=== PATIENT | male | born 1980 | race Caucasian/White ===

== ENCOUNTER 2019-08-02 14:59 | Emergency (ER) | payer OTHER ==
--- NOTE | 2019-08-02 15:35 | EDM.PDOC ---
ED HPI GENERAL MEDICAL PROBLEM - General Chief Complaint: Abdominal Pain Stated Complaint: R SIDE PAIN Time Seen by Provider: 08/02/19 15:09 Source of Information: Reports: Patient History Limitations: Reports: No Limitations - History of Present Illness INITIAL COMMENTS - FREE TEXT/NARRATIVE: Patient is a 38-year-old male who presents with acute onset of right lower quadrant abdominal pain. He states that the pain initially began this morning. It improved briefly, however has been getting gradually worse over the last couple hours. He states a couple days ago he had an episode where his entire lower abdomen was sore, however that resolved. He denies any nausea vomiting fever or chills. He has had some slight diarrhea, however he attributed that to having his gallbladder out. Patient denies the need for pain medications at this time. States "I am okay as long as I do not move". Right Abdomen Pain Score (Numeric/FACES): 5 - Related Data Allergies Allergy/AdvReac Type Severity Reaction Status Date / Time strawberry Allergy Cannot Verified 08/02/19 15:14 Remember Home Meds: Home Meds Colestipol [Colestipol HCl] 1 gram PO DAILY 12/10/18 [History] Past Medical History - Past Surgical History GI Surgical History: Reports: Cholecystectomy Social & Family History - Tobacco Use Smoking Status *Q: Current Every Day Smoker Years of Tobacco use: 5 Packs/Tins Daily: 1 - Caffeine Use Caffeine Use: Reports: Soda - Recreational Drug Use Recreational Drug Use: No ED ROS GENERAL - Review of Systems Review Of Systems: Comprehensive ROS is negative, except as noted in HPI. ED EXAM, GI/ABD - Physical Exam Exam: See Below Exam Limited By: No Limitations General Appearance: Alert, WD/WN, No Apparent Distress Respiratory/Chest: No Respiratory Distress, Lungs Clear, Normal Breath Sounds, No Accessory Muscle Use, Chest Non-Tender Cardiovascular: Normal Peripheral Pulses, Regular Rate, Rhythm, No Edema, No Gallop, No JVD, No Murmur, No Rub GI/Abdominal Exam: Normal Bowel Sounds, Soft, No Organomegaly, No Distention, No Abnormal Bruit, No Mass, Pelvis Stable, Rebound, Tender (Right lower quadrant ). No: Guarding, Rigid Neurological: Alert, Oriented, CN II-XII Intact, Normal Cognition, Normal Gait, Normal Reflexes, No Motor/Sensory Deficits Psychiatric: Normal Affect, Normal Mood Skin Exam: Warm, Dry, Intact, Normal Color, No Rash Course - Vital Signs Last Recorded V/S: Last Vital Signs Temp 97.8 F 08/02/19 18:20 Pulse 106 H 08/02/19 15:09 Resp 16 08/02/19 18:20 BP 125/92 H 08/02/19 18:20 Pulse Ox 95 08/02/19 18:20 - Orders/Labs/Meds Orders: Active Orders 24 hr Category Date Time Status Peripheral IV Care [RC] . DIRECTED Care 08/02/19 15:32 Active Peripheral IV Insertion Adult [OM.PC] Stat Oth 08/02/19 15:32 Ordered Labs: Laboratory Tests 08/02/19 08/02/19 08/02/19 Range/Units 15:46 15:46 16:55 WBC 8.03 (4.23-9.07) K/mm3 RBC 5.45 (4.63-6.08) M/mm3 Hgb 17.9 H (13.7-17.5) gm/dl Hct 49.5 (40.1-51.0) % MCV 90.8 (79.0-92.2) fl MCH 32.8 H (25.7-32.2) pg MCHC 36.2 H (32.2-35.5) g/dl RDW Std Deviation 44.0 H (35.1-43.9) fL Plt Count 270 D (163-337) K/mm3 MPV 10.2 (9.4-12.3) fl Neut % (Auto) 54.3 (34.0-67.9) % Lymph % (Auto) 32.1 (21.8-53.1) % [place] % (Auto) 9.2 (5.3-12.2) % Eos % (Auto) 3.6 (0.8-7.0) Baso % (Auto) 0.2 (0.1-1.2) % Neut # (Auto) 4.35 (1.78-5.38) K/mm3 Lymph # (Auto) 2.58 (1.32-3.57) K/mm3 [place] # (Auto) 0.74 (0.30-0.82) K/mm3 Eos # (Auto) 0.29 (0.04-0.54) K/mm3 Baso # (Auto) 0.02 (0.01-0.08) K/mm3 Manual Slide Review Not Reportable Sodium 139 (136-145) mEq/L Potassium 3.7 (3.5-5.1) mEq/L Chloride 105 (98-107) mEq/L Carbon Dioxide 24 (21-32) mEq/L Anion Gap 13.7 (5-15) BUN 9 (7-18) mg/dL Creatinine 1.1 (0.7-1.3) mg/dL Est Cr Clr Drug Dosing 88.95 mL/min Estimated GFR (MDRD) > 60 (>60) mL/min BUN/Creatinine Ratio 8.2 L (14-18) Glucose 104 (74-106) mg/dL Calcium 8.7 (8.5-10.1) mg/dL Total Bilirubin 0.5 (0.2-1.0) mg/dL AST 59 H (15-37) U/L ALT 214 H (16-63) U/L Alkaline Phosphatase 89 (46-116) U/L C-Reactive Protein 0.5 (<1.0) mg/dL Total Protein 7.3 (6.4-8.2) g/dl Albumin 4.0 (3.4-5.0) g/dl Globulin 3.3 gm/dL Albumin/Globulin Ratio 1.2 (1-2) Urine Color Yellow (Yellow) Urine Appearance Clear (Clear) Urine pH 6.0 (5.0-8.0) Ur Specific [place] > or = 1.030 (1.005-1.030) Urine Protein Negative (Negative) Urine Glucose (UA) Negative (Negative) Urine Ketones Negative (Negative) Urine Occult Blood Negative (Negative) Urine Nitrite Negative (Negative) Urine Bilirubin Negative (Negative) Urine Urobilinogen 0.2 (0.2-1.0) Ur Leukocyte Esterase Negative (Negative) Urine RBC 0-5 (0-5) /hpf Urine WBC 0-5 (0-5) /hpf Ur Squamous Epith Cells 0-5 (0-5) /hpf Urine Bacteria Few (FEW) /hpf Urine Mucus Few (FEW) /hpf Meds: Medications Discontinued Medications Generic Name Dose Route Start Last Admin Trade Name Freq PRN Reason Stop Dose Admin Diatrizoate Meglum/Diatrizoate Sod 90 ml 08/02/19 16:12 08/02/19 17:17 Gastrografin 37% PO 08/02/19 16:13 90 ml ONETIME ONE Administration Sodium Chloride 1,000 mls @ 150 mls/hr 08/02/19 15:45 08/02/19 15:47 Normal Saline IV 150 mls/hr ASDIRECTED YVON Administration Iopamidol 100 ml 08/02/19 16:12 08/02/19 17:17 Isovue-300 (61%) IVPUSH 08/02/19 16:13 100 ml ONETIME ONE Administration Iopamidol 25 ml 08/02/19 16:12 08/02/19 17:17 Isovue-300 (61%) IVPUSH 08/02/19 16:13 25 ml ONETIME ONE Administration Sodium Chloride 10 ml 08/02/19 15:32 08/02/19 17:18 Saline Flush FLUSH 10 ml ASDIRECTED PRN Administration Keep Vein Open - Re-Assessments/Exams Free Text/Narrative Re-Assessment/Exam: 08/02/19 17:55 Patient's work-up was grossly unremarkable with the exception of some mildly elevated liver enzymes and fatty infiltrations of the liver noted on the CT scan. Appendix was visualized and was normal. There were no other abnormal findings on the CT scan. Discussed that his pain is likely associated with abdominal wall muscle strain. We will discharge him home with instructions to follow-up in a few weeks in the clinic to have his liver enzymes rechecked. Discharge instructions as documented. Departure - Departure Time of Disposition: 17:56 Disposition: Home, Self-Care 01 Condition: Fair Clinical Impression: Abdominal pain of unknown cause - Discharge Information Instructions: Abdominal Pain, Adult, [id number] Referrals: PCP,None [Primary Care Provider] - Forms: ED Department Discharge, ED Return to Work/School Form Additional Instructions: You were seen in the emergency department today for right-sided and lower abdominal pain. Your work-up included hematology, urinalysis, and a CT scan of your abdomen. As we discussed, your work-up was overall normal, with the exception of some elevated liver enzymes and a fatty liver seen on CT scan. It is likely that the pain you are experiencing is associated with a strain of the abdominal muscles. Recommend that you take ibuprofen as needed for any pain or discomfort. As we discussed, your liver enzymes were elevated. I would recommend that you follow-up in the clinic in a few weeks to have these levels rechecked. If you should experience any new or worsening symptoms of concern, please do not hesitate to return to the emergency department. Sepsis Event Note - Evaluation Sepsis Screening Result: No Definite Risk - Focused Exam Vital Signs: Vital Signs Temp Pulse Resp BP Pulse Ox 08/02/19 18:20 97.8 F 16 125/92 H 95 08/02/19 15:09 97.1 F 106 H 24 H 151/94 H 93 L Date Exam was Performed: 08/02/19 Time Exam was Performed: 20:18 - My Orders Last 24 Hours: My Active Orders 08/02/19 15:32 Peripheral IV Care [RC] . DIRECTED Peripheral IV Insertion Adult [OM.PC] Stat - Assessment/Plan Last 24 Hours: My Active Orders 08/02/19 15:32 Peripheral IV Care [RC] . DIRECTED Peripheral IV Insertion Adult [OM.PC] Stat
[2019-08-02] MEDS: Sodium Chloride 0.9% 10 ML Syringe FLUSH PRN ×2 (15:40→17:18)
[2019-08-02] MEDS ORDERED: Sodium Chloride 0.9% 1,000 ML IV SCH (15:45)
[2019-08-02] MEDS ORDERED: Iopamidol 612 MG/ML 100 ML Bottle IVPUSH ONE (16:12)
[2019-08-02] MEDS ORDERED: Iopamidol 612 MG/ML 50 ML SDV IVPUSH ONE (16:12)
[2019-08-02] MEDS ORDERED: Diatrizoate Meglumine/Diatrizoate Sodium 37% 120 ML Bottle PO ONE (16:12)
--- NOTE | 2019-08-02 17:30 | CT ---
CT abdomen and pelvis Technique: Multiple axial sections were obtained from above the dome of the diaphragm inferiorly through the pubic symphysis. Intravenous contrast and oral contrast has been given. Delayed images were obtained through the bladder. Comparison: Prior CT abdomen and pelvis study of 12/10/18. Findings: Liver shows mild fatty infiltration without focal abnormality. Visualized lung bases show nothing acute. Spleen appears within normal limits. Adrenal glands show no nodule. Pancreas is within normal limits. Kidneys show symmetric contrast enhancement. Very minimal low density lesion is noted within the mid right kidney which is believed to represent a very small cyst measuring about 4 mm. No additional abnormality is seen within the kidneys. Aorta shows no aneurysm. Surgical clips are seen from prior cholecystectomy. No retroperitoneal adenopathy or mesenteric abnormalities are seen. No pelvic mass or adenopathy is seen. Appendix is seen which is normal in appearance. Delayed images shows contrast within the distal ureters and within the bladder. Bone window settings were reviewed which shows no discrete acute osseous finding. Impression: 1. Appendix is seen and appears normal in size. 2. Fatty infiltration within the liver. 3. Nothing acute is appreciated on CT study of the abdomen and pelvis. Diagnostic code #2 Study was dictated in MDT
== END 2019-08-02 18:20 | disposition home or self-care (01) ==
LOC: JD.ED 14:59
DX: R10.31 Right lower quadrant pain (principal); F17.210 Nicotine dependence, cigarettes, uncomplicated; Z91.018 Allergy to other foods; Z79.899 Other long term (current) drug therapy
CPT/HCPCS: 36415; 74177; 80053; 81001; 85025; 86140; 96360; 96361; 99284; J7030; Q9963; Q9967